=== PATIENT | female | born 1965 ===

== ENCOUNTER 2023-06-14 10:18 | Emergency (ER) | payer SELFPAY ==
[2023-06-14] MEDS ORDERED: Acetaminophen 500 MG Tab PO ONE (10:46)
== END 2023-06-14 11:04 | disposition home or self-care (01) ==
LOC: MW.ED 10:18
DX: Z02.89 Encounter for other administrative examinations (principal); M54.50 Low back pain, unspecified; G89.29 Other chronic pain
CPT/HCPCS: 99283; A9270